=== PATIENT | female | born 1965 | race Two or more races ===

== ENCOUNTER → 2018-01-26 14:32 | Outpatient (CLI) | payer OTHER, SELFPAY ==
[2018-01-26 16:25] LABS: Vitamin D,25 Hydroxy 20.3 ng/mL (29.95-100.01)
== END ==
PROVIDERS: Visit Provider Family Medicine
DX: E55.9 Vitamin D deficiency, unspecified (principal)
CPT/HCPCS: 36415; 82306

== ENCOUNTER → 2018-05-22 08:48 | Outpatient (CLI) | payer OTHER, SELFPAY ==
--- NOTE | 2018-05-22 | IMM_PTH ---
PATIENT: LESLEY BRIONES LOC: [facility] U#:[id number] AGE/SX: 60/F ROOM: RE05/22/[address]: Dr. Nima Samuels MD : 1965 BED: DIS: SPEC #: [id number] RECD: 05/23/18 11:53 STATUS: LAZARO PATRICE #: [id number] ADELE: 05/22/18 00:[address]: Nima Samuels DEPT: IMMUNOHISTOCHEMISTRY RECD BY: Donnie Branham Tissues: Gastric mucous membrane Procedures: H Pylori (initial) PHYSICIAN & INSTITUTION [place] [id number] SPECIMEN INFORMATION: Tissue Source: Gastric biopsy Clinical Info: GERD, epigastric pain Specimen Number: [id number] CPT code: 24865 METHODOLOGY: Deparaffinized sections of prefer/formalin-fixed tissue or PAP/DQ stained slides are incubated with monoclonal/polyclonal antibodies/oligonucleotide probes. Localization is made via biotin free immunoperoxidase method. Appropriate controls are performed and reacted as expected. Results on target cell population are indicated in the following table: RESULTS: ANTIBODY / CLONE RESULT H Pylori (polyclonal) positive These tests were developed and their performance characteristics determined by [facility]. They may not have been cleared or approved by the U.S. Food and Drug Administration. The FDA has determined that such clearance or approval is not necessary. INTERPRETATION: Gastric biopsy: Positive for Helicobacter pylori organisms. NEWTON:ani 05/24/18
--- NOTE | 2018-05-22 | EGD_PTH ---
PATIENT: LESLEY BRIONES LOC: [facility] U#:[id number] AGE/SX: 60/F ROOM: RE05/22/[address]: Dr. Nima Samuels MD : 1965 BED: DIS: SPEC #: [id number] RECD: 05/22/18 11:37 STATUS: LAZARO PATRICE #: [id number] ADELE: 05/22/18 00:[address]: Nima Samuels DEPT: SURGICAL PATHOLOGY RECD BY: Rivas Garcia ENTERED: 05/23/18 11:37 SP TYPE: EGD BIOPSY SHIELA DR: CAYETANO Tissues: Gastric mucous membrane Procedures: Surgery Specimen Level IV HEADER OPERATION: EGD with biopsy PRE-OP DIAGNOSIS: GERD, epigastric pain TISSUE SUBMITTED: Gastric biopsy, rule out gastritis MICROSCOPIC DIAGNOSIS Gastric biopsy: Mild gastritis. SJ:judith 05/23/18 COMMENT The results of immunohistochemistry for Helicobacter pylori will be reported separately ([id number]). This case has been reviewed in consultation with Dr. Briones who concurs with the above diagnoais. MICROSCOPIC DESCRIPTION Slides are reviewed. The specimen shows fragments of gastric mucosa with chronic inflammatory cell infiltrates in the lamina propria consisting of lymphocytes and plasma cells, consistent with mild chronic gastritis. GROSS DESCRIPTION Received in fixative is one container labeled with the patient's name and designated gastric biopsy. The specimen consists of multiple fragments of tissue measuring in aggregate of 1.5 x 0.3 x 0.2. The specimen is totally submitted in one cassette. MERISSA:judith 05/21/18 TC: 3 CPT: 23111
== END ==
PROVIDERS: Visit Provider Internal Medicine Gastroenterology
DX: K21.9 Gastro-esophageal reflux disease without esophagitis (principal); R10.13 Epigastric pain
CPT/HCPCS: 88305; 88342

== ENCOUNTER → 2018-10-15 13:30 | Outpatient (CLI) | payer OTHER, SELFPAY ==
[2018-10-25 08:58] LABS: HPV HC, High Risk Negative (Negative); HPV Reflexed? YES, CHARGE PATIENT
== END ==
PROVIDERS: Visit Provider Obstetrics & Gynecology
DX: Z12.4 Encounter for screening for malignant neoplasm of cervix (principal)
CPT/HCPCS: 87624; 88175; G0145

== ENCOUNTER → 2019-10-16 13:35 | Outpatient (CLI) | payer OTHER, SELFPAY ==
[2019-10-16 15:23] LABS: Absolute Neutrophil Count 2.3 X10^3/uL (2.0-7.7); Basophil# 0.01 X10^3/uL; Basophil% 0.2 % (0-1); Eosinophil# 0.03 X10^3/uL; Eosinophils% 0.6 % (0-5); Hematocrit 40.1 % (37-47); Hemoglobin 12.8 g/dL (12.0-15.0); Lymphocyte % 44.7 % (19-41); Mean Corp Hgb Conc 31.9 g/dL (32-36); Mean Corpuscular Hgb 30.1 pg (27.0-32.0); Mean Corpuscular Volume 94.4 fL (81-99); Mean Platelet Vol. 10.8 fl (6.2-12.0); Monocyte# 0.36 X10^3/uL; Monocyte% 7.3 % (0-10); NRBC Flagged by Analyzer 0 % (0-5); Neutrophil # 2.31 X10^3/uL (2.7-7.7); Platelet Count 220 K/mm3 (150-450); RBC Distribution Width CV 12.8 % (11.6-14.6); RBC Distribution Width SD 43.9 fl (35.1-43.9); Red Blood Count 4.25 M/mm3 (4.2-5.4); White Blood Count 4.9 K/mm3 (4.4-11.0)
[2019-10-16 15:43] LABS: ALB/GLOB Ratio 1.1 RATIO (0.9-2.4); AST(SGOT) 21 U/L (15-37); Alanine Aminotransfer ALT/SGPT 26 U/L (13-56); Albumin, Serum 3.9 g/dL (3.2-5.0); Alkaline Phosphatase 54 U/L (45-117); Anion Gap 7 (5-15); BUN 9 mg/dL (7-18); CRP < 2.90 mg/L (0.0-3.0); Chloride 106 mmol/L (98-107); Creatinine, Serum 0.64 mg/dL (0.55-1.02); EST Glomerular Filtration Rate 102 mL/min (>60); Est Glom Filt Rate - Afr Amer 123 mL/min (>60); Globulin 3.7 g/dL (2.2-4.2); Glucose 68 mg/dL (74-106); Potassium 3.8 mmol/L (3.5-5.1); Protein, Total 7.6 g/dL (6.4-8.2); Sodium Level 139 mmol/L (136-145)
== END ==
PROVIDERS: Family Provider Family Medicine; PCP Family Medicine; Referring Provider Family Medicine; Visit Provider Family Medicine
DX: K52.9 Noninfective gastroenteritis and colitis, unspecified (principal)
CPT/HCPCS: 36415; 80053; 85025; 86140

== ENCOUNTER → 2019-10-17 16:15 | Outpatient (CLI) | payer OTHER, SELFPAY | PROVIDERS: Family Provider Family Medicine; PCP Family Medicine; Referring Provider Family Medicine; Visit Provider Family Medicine | DX: K52.9 Noninfective gastroenteritis and colitis, unspecified (principal) | CPT/HCPCS: 87506 ==

== ENCOUNTER → 2019-11-26 11:53 | Outpatient (CLI) | payer OTHER, SELFPAY ==
[2019-11-29 16:08] LABS: Age Gdln ACOG Testing 30-65 (.)
[2019-11-30 13:05] LABS: HPV APTIMA, High Risk Negative (Negative)
[2019-11-30 13:08] LABS: HPV Reflexed? YES, CHARGE PATIENT
== END ==
PROVIDERS: Visit Provider Obstetrics & Gynecology
DX: Z12.4 Encounter for screening for malignant neoplasm of cervix (principal)
CPT/HCPCS: 87624; 88175; G0145

== ENCOUNTER → 2020-04-24 16:08 | Outpatient (CLI) | payer OTHER, SELFPAY ==
[2020-04-24 18:13] LABS: Vitamin D,25 Hydroxy 33.9 ng/mL
== END ==
PROVIDERS: PCP Family Medicine; Referring Provider Family Medicine; Visit Provider Family Medicine
DX: E55.9 Vitamin D deficiency, unspecified (principal)
CPT/HCPCS: 36415; 82306

== ENCOUNTER → 2020-12-01 | Outpatient (CLI) | payer OTHER, SELFPAY ==
[2020-12-04 15:56] LABS: HPV APTIMA, High Risk Negative (Negative); HPV Reflexed? YES, CHARGE PATIENT
== END | disposition home or self-care (01) ==
LOC: LABSPEC 12-02 08:34
PROVIDERS: PCP Family Medicine; Visit Provider Student in an Organized Health Care Education/Training Program
DX: Z12.4 Encounter for screening for malignant neoplasm of cervix (principal)
CPT/HCPCS: 87624; 88175; G0145

== ENCOUNTER 2022-01-04 16:04 | Outpatient (CLI) | payer OTHER, SELFPAY ==
[2022-01-08 14:47] LABS: HPV APTIMA, High Risk Negative (Negative)
== END 2022-01-04 23:59 | disposition home or self-care (01) ==
PROVIDERS: PCP Family Medicine; Visit Provider Student in an Organized Health Care Education/Training Program
DX: Z12.4 Encounter for screening for malignant neoplasm of cervix (principal)
CPT/HCPCS: 87624; 88175; G0145

== ENCOUNTER 2022-01-19 11:21 | Outpatient (CLI) | payer OTHER, SELFPAY ==
--- NOTE | 2022-01-19 11:25 | BD_ITS ---
STUDY: DUAL ENERGY X-RAY ABSORPTIOMETRY / DXA REASON FOR EXAM: Female, 56 years old. [id number] the patient is postmenopausal. TECHNIQUE: Bone Mineral Density (BMD) measurements of lumbar spine and bilateral hips were obtained. COMPARISON: Comparison is made with prior study dated 10/11/2012. FINDINGS: Lumbar Spine (L1-L4): g/cm2 (0.780) / T-score (-2.4) / Z-score (-1.1) Findings are suggestive of osteopenia with a high fracture risk. Left Femur Total: g/cm2 (0.921) / T-score (-0.2) / Z-score (0.7) Left Femoral Neck: g/cm2 (0.806) / T-score (-0.4) / Z-score (0.8) Right Femur Total: g/cm2 (0.910) / T-score (-0.3) / Z-score (0.6) Right Femoral Neck: g/cm2 (0.829) / T-score (-0.2) / Z-score (1.0) The T-Scores on the most recent prior examination were: Lumbar Spine (L1-L4): There has been worsening of bone density since the previous examination. Left Femur Total: which represents a worsening of 0.5%. Right Femur Total: which represents an improvement of 0.8%. BD/Dexa Bone Density Study IMPRESSION: The patient is considered osteopenic as outlined below according to World Adrian Organization (WHO) criteria with a high fracture risk. There has been worsening of bone density since the previous examination. Reference Information: The T-score is the number of standard deviations above or below the standard which is normal for young adults at their peak bone mineral density. The World Health Organization (WHO) interprets the T-scores as follows: Above -1 Normal bone density Between -1 and -2.5 Osteopenia Equal to / or below -2.5 Osteoporosis As a practical clinical guideline, osteopenia may be graded as follows: Mild -1 through -1.5 Moderate -1.6 through -2.0 Severe -2.1 through -2.4 The Z-score is the number of standard deviations above or below age-matched controls. A Z-score of less than -1.5 would be considered abnormal. References: 1. NIH Osteoporosis and Related Bone Diseases www osteo.org 2. International Society for Clinical Densitometry www iscd.org 3. National Osteoporosis Foundation www nof.org Electronically Signed: Jose James MD at 15:27 EST ,
== END 2022-01-19 23:59 | disposition home or self-care (01) ==
LOC: OPBD 11:22
PROVIDERS: PCP Family Medicine; Referring Provider Student in an Organized Health Care Education/Training Program; Visit Provider Student in an Organized Health Care Education/Training Program
DX: Z13.820 Encounter for screening for osteoporosis (principal); M85.80 Other specified disorders of bone density and structure, unspecified site; Z78.0 Asymptomatic menopausal state
CPT/HCPCS: 77080

== ENCOUNTER → 2022-10-27 | Outpatient (CLI) | payer OTHER, SELFPAY ==
--- NOTE | 2022-10-27 16:36 | BI_ITS ---
MAMMOGRAPHY - BILATERAL SCREENING REASON FOR EXAM: Female, 57 years old. Routine annual screening examination. PERTINENT HISTORY: Personal history of breast cancer. Prior right lumpectomy with radiation and chemotherapy. Grandmother with breast cancer. TECHNIQUE: Digital bilateral breast derek (3D mammographic acquisition) in the CC and MLO projections. 2-D mediolateral oblique (MLO) and craniocaudad (CC) views of both breasts were obtained. CAD: Full Field Digital Mammography with Computer Added Detection was performed. COMPARISON: Comparison is made with prior outside examination dated 10/14/2021. FINDINGS: Breast Composition: There are scattered areas of fibroglandular density. There are no dominant masses or suspicious calcifications. The patient is status post lumpectomy in the retroareolar region of the right breast with resultant postoperative architectural distortion and breast deformity with skin thickening overlying the anterior aspect of the breast. No other significant abnormalities are identified. There has been no significant change since the prior study. BI/SCRN MAMM (CAD)W/DEREK BILAT IMPRESSION: Stable bilateral screening mammogram. Yearly follow-up mammogram recommended. (A) ASSESSMENT CATEGORY: BIRADS Category 2: Benign. A letter regarding these results will be sent to the patient by the facility within 30 days. Approximately 10% of breast cancers are not detected by mammography. A normal mammogram should not delay biopsy of a clinically suspicious abnormality. [id number] Electronically Signed: Jose James MD at 8:40 EST ,
== END | disposition home or self-care (01) ==
LOC: OPBI 10-28 07:14
PROVIDERS: PCP Family Medicine
DX: Z12.31 Encounter for screening mammogram for malignant neoplasm of breast (principal); C50.911 Malignant neoplasm of unspecified site of right female breast; Z17.0 Estrogen receptor positive status [ER+]
CPT/HCPCS: 77063; 77067

== ENCOUNTER → 2023-03-13 | Outpatient (CLI) | payer OTHER, SELFPAY ==
[2023-03-17 21:07] LABS: HPV APTIMA, High Risk Negative (Negative)
== END | disposition home or self-care (01) ==
LOC: LABSPEC 09:42
PROVIDERS: PCP Family Medicine; Visit Provider Student in an Organized Health Care Education/Training Program
DX: Z12.4 Encounter for screening for malignant neoplasm of cervix (principal)
CPT/HCPCS: 87624; 88175; G0145

== ENCOUNTER → 2023-04-26 | Outpatient (CLI) | payer OTHER, SELFPAY ==
--- NOTE | 2023-04-26 15:37 | RAD_ITS ---
INDICATION: pre op EXAMINATION/TECHNIQUE: X-RAY - XR Chest 2 Views COMPARISON: None. FINDINGS: LINES/DEVICES: None. LUNGS: No consolidation, edema or effusion. No pneumothorax. MEDIASTINUM AND CARDIOVASCULAR STRUCTURES: Cardiac silhouette not enlarged. Central airways and mediastinal contour are unremarkable. BONES AND SOFT TISSUES: Unremarkable. RAD/Chest PA and Lateral IMPRESSION: No radiographic evidence of acute cardiopulmonary disease. Electronically Signed: Clifton Diggs MD at 0:15 EDT ,
[2023-04-26 17:23] LABS: Absolute Lymphocyte Count 1.73 X10^3/uL (0.83-4.51); Basophil# 0.03 X10^3/uL; Basophil% 0.7 % (0-1); Eosinophil# 0.05 X10^3/uL; Eosinophils% 1.2 % (0-5); Hematocrit 42.8 % (37-47); Hemoglobin 13.6 g/dL (12.0-15.0); Lymphocyte # 1.73 X10^3/ul (0.83-4.51); Lymphocyte % 42.3 % (19-41); Mean Corp Hgb Conc 31.8 g/dL (32-36); Mean Corpuscular Hgb 29.8 pg (27.0-32.0); Mean Corpuscular Volume 93.7 fL (81-99); Mean Platelet Vol. 9.7 fl (6.2-12.0); Monocyte# 0.29 X10^3/uL; Monocyte% 7.1 % (0-10); NRBC Flagged by Analyzer 0 % (0-5); Neutrophil # 1.98 X10^3/uL (2.7-7.7); Neutrophil % 48.5 % (47-70); Platelet Count 262 K/mm3 (150-450); RBC Distribution Width CV 12.8 % (11.6-14.6); RBC Distribution Width SD 43.8 fl (35.1-43.9); Red Blood Count 4.57 M/mm3 (4.2-5.4); White Blood Count 4.1 K/mm3 (4.4-11.0)
[2023-04-26 18:04] LABS: ALB/GLOB Ratio 1.1 RATIO (0.9-2.4); AST(SGOT) 23 U/L (15-37); Alanine Aminotransfer ALT/SGPT 34 U/L (13-56); Albumin, Serum 3.9 g/dL (3.2-5.0); Alkaline Phosphatase 79 U/L (45-117); Anion Gap 7 (5-15); BUN 16 mg/dL (7-18); BUN/Creat Ratio 21.4 RATIO (10-20); Calcium,Total 9.1 mg/dL (8.5-10.1); Chloride 107 mmol/L (98-107); Creatinine, Serum 0.75 mg/dL (0.55-1.02); EST Glomerular Filtration Rate 84 mL/min (>60); Est Glom Filt Rate - Afr Amer 102 mL/min (>60); Globulin 3.7 g/dL (2.2-4.2); Glucose 100 mg/dL (74-106); Potassium 4.2 mmol/L (3.5-5.1); Protein, Total 7.6 g/dL (6.4-8.2); Sodium Level 140 mmol/L (136-145)
== END | disposition home or self-care (01) ==
LOC: MTLAB 15:35
PROVIDERS: PCP Family Medicine; Referring Provider Nurse Practitioner Family; Visit Provider Nurse Practitioner Family
DX: Z01.818 Encounter for other preprocedural examination (principal)
CPT/HCPCS: 36415; 71046; 80053; 85025

== ENCOUNTER → 2023-07-07 | Outpatient (CLI) | payer OTHER, SELFPAY ==
[2023-07-07 18:13] LABS: Anion Gap 5 (5-15); BUN 14 mg/dL (7-18); BUN/Creat Ratio 14.6 RATIO (10-20); Calcium,Total 9.6 mg/dL (8.5-10.1); Chloride 104 mmol/L (98-107); Cholesterol 215 mg/dL (200); Creatinine, Serum 0.96 mg/dL (0.55-1.02); EST Glomerular Filtration Rate 63 mL/min (>60); Est Glom Filt Rate - Afr Amer 77 mL/min (>60); Glucose 93 mg/dL (74-106); High Density Lipoprotein 66 mg/dL; Potassium 4.3 mmol/L (3.5-5.1); Sodium Level 135 mmol/L (136-145); Triglycerides 93 mg/dL; Very Low Density Lipoprotein 19 mg/dL (5-40)
== END | disposition home or self-care (01) ==
LOC: MFPLAB 15:04
PROVIDERS: PCP Family Medicine; Visit Provider Family Medicine
DX: Z00.00 Encounter for general adult medical examination without abnormal findings (principal)
CPT/HCPCS: 36415; 80048; 80061

== ENCOUNTER → 2023-11-06 | Outpatient (CLI) | payer OTHER, SELFPAY ==
--- NOTE | 2023-11-06 14:15 | BI_ITS ---
MAMMOGRAPHY - BILATERAL SCREENING REASON FOR EXAM: Female, 58 years old. Routine annual screening examination. PERTINENT HISTORY: Personal history of breast cancer. Prior right lumpectomy with radiation and chemotherapy. Grandmother with breast cancer. TECHNIQUE: Digital bilateral breast derek (3D mammographic acquisition) in the CC and MLO projections. 2-D mediolateral oblique (MLO) and craniocaudad (CC) views of both breasts were obtained. CAD: Full Field Digital Mammography with Computer Added Detection was performed. COMPARISON: Comparison is made with prior study dated October 27, 2022 and August 03, 2011. FINDINGS: Breast Composition: There are scattered areas of fibroglandular density. There are no dominant masses or suspicious calcifications. The patient is status post lumpectomy in the retroareolar region of the right breast with resultant postoperative architectural distortion and breast deformity. Overlying skin thickening. Stable benign-appearing bilateral axillary lymph nodes. No other significant abnormalities are identified. There has been no significant change since the prior study. BI/SCRN MAMM (CAD)W/DEREK BILAT IMPRESSION: Stable bilateral screening mammogram. Yearly follow-up mammogram recommended. (A) ASSESSMENT CATEGORY: BIRADS Category 2: Benign. A letter regarding these results will be sent to the patient by the facility within 30 days. Approximately 10% of breast cancers are not detected by mammography. A normal mammogram should not delay biopsy of a clinically suspicious abnormality. [id number] Electronically Signed: Jose James MD at 15:13 EST ,
== END | disposition home or self-care (01) ==
LOC: OPBI 14:14
PROVIDERS: PCP Family Medicine; Referring Provider Family Medicine; Visit Provider Family Medicine
DX: Z12.31 Encounter for screening mammogram for malignant neoplasm of breast (principal); Z85.3 Personal history of malignant neoplasm of breast
CPT/HCPCS: 77063; 77067

== ENCOUNTER → 2024-11-07 | Outpatient (CLI) | payer OTHER, SELFPAY ==
--- NOTE | 2024-11-07 14:50 | BI_ITS ---
MAMMOGRAPHY - BILATERAL SCREENING REASON FOR EXAM: Female, 59 years old. Routine annual screening examination. PERTINENT HISTORY: Personal history of breast cancer. Prior right lumpectomy with chemotherapy and radiation therapy. Grandmother with breast cancer. TECHNIQUE: Digital bilateral breast derek (3D mammographic acquisition) in the CC and MLO projections. 2-D mediolateral oblique (MLO) and craniocaudad (CC) views of both breasts were obtained. CAD: Full Field Digital Mammography with Computer Added Detection was performed. COMPARISON: Comparison is made with prior study dated November 06, 2023 and October 27, 2020 FINDINGS: Breast Composition: There are scattered areas of fibroglandular density. There are no dominant masses or suspicious calcifications. Once again, the patient is status post lumpectomy in the retroareolar region of the right breast with resultant postoperative architectural distortion and breast deformity. Stable overlying skin thickening. Stable fat-containing right axillary lymph nodes. No other significant abnormalities are identified. There has been no significant change since the prior study. BI/SCRN MAMM (CAD)W/DEREK BILAT IMPRESSION: Stable bilateral screening mammogram. Yearly follow-up mammogram recommended. (A) ASSESSMENT CATEGORY: BIRADS Category 2: Benign. A letter regarding these results will be sent to the patient by the facility within 30 days. Approximately 10% of breast cancers are not detected by mammography. A normal mammogram should not delay biopsy of a clinically suspicious abnormality. [id number] Electronically Signed: Jose James MD at 15:24 EST ,
== END | disposition home or self-care (01) ==
LOC: OPBI 14:49
PROVIDERS: PCP Family Medicine; Referring Provider Obstetrics & Gynecology; Visit Provider Family Medicine
DX: Z12.31 Encounter for screening mammogram for malignant neoplasm of breast (principal)
CPT/HCPCS: 77063; 77067

== ENCOUNTER → 2025-11-11 | Outpatient (CLI) | payer OTHER, SELFPAY ==
--- NOTE | 2025-11-11 15:02 | BI_ITS ---
EXAM: SCRN MAMM (CAD)W/DEREK BILAT DATE: 11/11/2025 CLINICAL HISTORY: F, Age 60 y/o , SCREENING Personal history of breast cancer. Prior right lumpectomy. TECHNIQUE: Procedure Code: [id number] Modality: MG Procedure: SCRN MAMM (CAD)W/DEREK BILAT COMPARISON: Prior exam(s) dated November 07, 2024.. FINDINGS: TISSUE DENSITY: The breasts are heterogeneously dense, which may obscure small masses. Bilateral Breast Mammographic Findings: No significant masses, calcifications or other abnormalities are identified. Status post right lumpectomy with postoperative scarring. No suspicious masses, areas of developing architectural distortion, or suspicious calcifications. There has been no significant interval change. BI/SCRN MAMM (CAD)W/DEREK BILAT IMPRESSION: Stable bilateral screening mammogram. OVERALL FINAL ASSESSMENT BI-RADS 2: BENIGN RECOMMENDATION: Routine annual follow-up in 1 Year Additional Recommendation none A letter with findings and recommendations will be mailed to the patient. Reading Location: [facility]
--- OUTSIDE RECORDS SUMMARY | 2025-11-11 20:22 | XMS RPT_ITS | CCD ---
Author Organization [facility] CliniSyut Care Team Providers Care Licensed Reactor Operator Name Role Phone FLORENCE VIRGEN Primary Care Unavailable FLORENCE VIRGEN Primary Care Unavailable PROMISE, FLORENCE Gianna Referring Unavailable COLIN REA Attending Unavailable Dr. Florence Virgen Primary Care Provider Dr. Florence Virgen Referring Provider [facility] COMMUNICATIONS MAINTAINER, COMMUNICATIONS MAINTAINERMelia Lujan Attending Provider DR FLORENCE VIRGEN MD Primary Care Physician [phone] JUDIT TORRES MD Attending Unavailable DR FLORENCE VIRGEN MD Primary Care Unavailable NICO BAEZ, MICK Consulting Unavailable [place] SERVICE OFFICER-ASSISTANT BRANCH OPERATIONS MANAGER, CYRUS Attending Unavailjemal VIRGEN MD, DR BEAR Primary Care Unavailable JUDIT TORRES MD Attending Unavailable PROMISE BAEZ, DR BEAR Primary Care Unavailable Unavailable Primary Care Provider UnavailSHARLENE Gonzalez Attending Unavailable Florence Virgen Attending Unavailable Florence Virgen Primary Care Unavailable Sharlene Chowdary Referring Unavailable Kaye Terry MD Primary Care Provider KAYE TERRY Referring Unavailable SCHOCHAT, KAYE Primary Care Unavailable RICARDO MUNOZ Attending Unavailable SERENITY CONROY Attending Unavailable MICHAELATKAYE Referring Unavailable SCHOCHAT, KAYE Primary Care Unavailable MICHAELATKAYE Attending Unavailable SCHKAYE BAXTER Referring Unavailable SCHOCHAT, KAYE Primary Care Unavailable SCHCASIMIROATKAYE Attending Unavailable SCHOCHAT, KAYE Referring Unavailable SCHOCHAT, KAYE Admitting Unavailable SCHOCHAT, KAYE Primary Care Unavailable NAVDEEP BARROS Attending Unavailable SCHCASIMIROAT, KAYE Referring Unavailable SCHOCHAT, KAYE Primary Care Unavailable SCHKAYE BAXTER Attending Unavailable SCHOCHAT, KAYE Primary Care Unavailable PCP, NONE Referring Unavailable CORA GILL Attending Unavailable KAYE TERRY Referring Unavailable KAYE TERRY Primary Care Unavailable Medications Current Medications Medication Drug Class(es) Dates Sig (Normalized) Sig (Original) amoxicillin 500 mg / clavulanate 125 mg oral tablet (5 sources) Penicillin-class Antibacterial Start: 10-22-2022 take 1 tablet by mouth every twelve hours Amoxicillin-Pot Clavulanate (Augmentin) 500-125 mg tablet Active 1 TABLET PO Q12H October 22, 2022 12:00am B Complex-Folic Acid (B COMPLEX VITAMINS, W/ FA, PO) (1 source) B Complex-Folic Acid (B COMPLEX VITAMINS, W/ FA, PO) Take by mouth every 48 hours. Active Calcium (2 sources) Phosphate Binder, Calcium CALCIUM PO Take by mouth once. Active CALCIUM ORAL [place] e by mouth. Active calcium carbonate 1500 mg / cholecalciferol 0.01 mg oral tablet (1 source) Vitamin D Start: 04-20-2023 take 1 tablet by mouth once daily at bedtime calcium (as carbonate)-vitamin D 600 mg-10 mcg (400 intl units) oral tablet Dose = 1 tab(s), Oral, qHS, # 60 tab(s), 0 Refill(s) Start Date: 04/20/23 Status: Ordered cetirizine hydrochloride 10 mg oral tablet (2 sources) Histamine-1 Receptor Antagonist Start: 04-20-2023 Aller-Cem 10 mg oral tablet Dose : 10 mg = 1 tab(s), Oral, qHS, 0 Refill(s) Start Date: 04/20/23 Status: Ordered loratadine 10 mg oral tablet (1 source) take 1 tablet by mouth every twenty-four hours as needed loratadine (CLARITIN) 10 mg tablet Take 10 mg by mouth at bedtime as needed. Active Multiple Vitamins-Minerals (WOMENS MULTIVITAMIN PO) (1 source) Multiple Vitamins-Minerals (WOMENS MULTIVITAMIN PO) Take by mouth. Active Vitamin B Complex (1 source) vitamin B comple x (B COMPLEX VITAMINS ORAL) Take by mouth every 48 hours. Active Vitamin B Complex oral capsule (1 source) Start: 04-20-2023 take 1 capsule by mouth once daily at bedtime Vitamin B Complex oral capsule Dose = 1 cap(s), Oral, qHS, # 90 cap(s), 0 Refill(s) Start Date: 04/20/23 Status: Ordered Problems Active Problems Problem Classification Problem Date Documented Da te Episodic/Chronic Abdominal pain (1 source) Pain in female pelvis 05-03-2023 Episodic Cancer of breast (8 sources) Malignant neoplasm of unspecified site of right female breast; Translations: [Malignant tumor of breast ] Onset: 08-04-2011 Chronic Other female genital disorders (1 source) Stenosis of cervix 05-03-2023 Episodic Other liver diseases (2 sources) Elevated liver enzymes level; Translations: [Abnormal levels of other serum enzymes] 07-04-2025 Episodic Other screening for suspected conditions (not mental disorders or infectious disease) (1 source) Endometrium thickened 05-03-2023 Chronic Past or Other Problems Problem Classification Problem Date Documented Date Episodic/Chronic Cancer of breast (2 sources) History of malignant neoplasm of breast; Translations: [Personal history of malignant neoplasm of breast] Onset: 06-20-2025 09-16-2024 Episodic Immunizations and screening for infectious disease (4 sources) Patient encounter status; Translations: [Encounter for screening for human papillomavirus (HPV)] Onset: 06-20-2025 09-16-2024 Episodic Other liver diseases (1 source) Abnormal levels of other serum enzymes; Translations: [Abnormal levels of other serum enzymes] Onset: 06-25-2025 Episodic Other screening for suspected conditions (not mental disorders or infectious disease) (6 sources) Encounter for screening mammogram for malignant neoplasm of breast; Translations: [Patient encounter status] Onset: 10-17-2022 Episodic Other upper respiratory infections (6 sources) Acute maxillary sinusitis; Translations: [Acute maxillary sinusitis, unspecified] Episodic Residual codes; unclassified (2 sources) Estrogen receptor positive status [ER+]; Translations: [Estrogen receptor positive status (ER+)] Onset: 10-03-2011 Episodic Results Test Name Value Interpretation Reference Range Facil it HEPATIC FUNCTION PANELon Albumin [Mass/Vol] 4.5 g/dL Normal 3.5-5.0 [facility] arviem AG [facility] Comment on above: Performed By: #### 4 [id number] #### [place] [address] [place] [address] ALK PHOS 118 U/L Normal 24-126 [facility] Comment on above: Performed By: #### 4 [id number] #### [address] ALT [Catalytic activity/Vol] 34 U/L Normal 4-35 [facility] Comment on above: Performed By: #### 4 [id number] #### [address] AST [Catalytic activity/Vol] 45 U/L Normal 3-47 [facility] Comment on above: Performed By: #### 4 [id number] #### [address] Bilirubin [Mass/Vol] 0.4 mg/dL Normal 0.2-1.6 [facility] Comment on above: Performed By: #### 4 [id number] #### [address] Bilirubin.indirect [Mass/Vol] 0.2 mg/dL Normal <=0.5 [facility] Comment on above: Performed By: #### 4 [id number] #### [address] Protein [Mass/Vol] 7.5 g/dL Normal 6.3-8.2 [facility] Comment on above: Performed By: #### 4 [id number] #### [address] HEPATIC FUNCTION PANELon Albumin [Mass/Vol] 4.4 g/dL Normal 3.5-5.0 [facility] Comment on above: Performed By: #### 4 [id number] #### [address] ALK PHOS 106 U/L Normal 24-126 [facility] Comment on above: Performed By: #### 4 [id number] #### [address] [address] ALT [Catalytic activity/Vol] 43 U/L High 4-35 [facility] Comment on above: Performed By: #### 4 [id number] #### [facility] [address] [place] [address] AST [Catalytic activity/Vol] 38 U/L Normal 3-47 [facility] Comment on above: Performed By: #### 4 [id number] #### [facility] [address] Bilirubin [Mass/Vol] 0.8 mg/dL Normal 0.2-1.6 [facility] arviem AG [facility] Comment on above: Performed By: #### 4 [id number] #### [place] [address] Bilirubin.indirect [Mass/Vol] 0.3 mg/dL Normal <=0.5 [facility] Comment on above: Performed By: #### 4 [id number] #### [place] [address] Protein [Mass/Vol] 7.8 g/dL Normal 6.3-8.2 [facility] arviem AG [facility] Comment on above: Performed By: #### 4 [id number] #### [place] [address] US LIVERon 07-04-2025 US LIVER EXAMINATION: US LIVER, 07/04/2025 8:55 AM EDT INDICATION: Abnormal serum enzymes. FINDINGS: Mild generalized increased hepatic echogenicity. No hepatic mass. The liver is normal for size. Portal vein demonstrates normal patency and directional flow. No intrahepatic biliary duct dilatation. No perihepatic free fluid or intra-abdominal ascites. Gallbladder is normal without luminal debris or gallstones. No gallbladder wall thickening, or pericholecystic fluid. Patient demonstrates a negative sonographic Ann's sign. Common duct measures 3 mm, which is considered within normal limits. The right kidney is sonographically unremarkable. Pancreatic head and body are normal. The pancreatic tail is obscured. Visualized IVC and aorta appear unremarkable. IMPRESSION: 1. Mildly echogenic hepatic parenchyma. Hepatic findings are most commonly due to hepatic steatosis. Differential considerations include, but are not limited to, hepatic inflammation and infection. Diagnosis: Elevated liver enzymes [R74.8 (ICD-10-CM)] Tech Notes: elevated liver enzymes Tech impression: neg ann's; wnl See the scanned document in Synapse under the Documents tab. Order Comments: Ordering Physician: Kaye Terry MD Dose: Normal [facility] US Liveron 07-04-2025 1. Mildly echogenic hepatic parenchyma. Hepatic findings are most commonly due to hepatic steatosis. Differential considerations include, but are not limited to, hepatic inflammation and infection. [facility] EXAMINATION: US LIVER, 07/04/2025 8:55 AM EDT INDICATION: Abnormal serum enzymes. FINDINGS: Mild generalized increased hepatic echogenicity. No hepatic mass. The liver is normal for size. Portal vein demonstrates normal patency and directional flow. No intrahepatic biliary duct dilatation. No perihepatic free fluid or intra-abdominal ascites. Gallbladder is normal without luminal debris or gallstones. No gallbladder wall thickening, or pericholecystic fluid. Patient demonstrates a negative sonographic Ann's sign. Common duct measures 3 mm, which is considered within normal limits. The right kidney is sonographically unremarkable. Pancreatic head and body are normal. The pancreatic tail is obscured. Visualized IVC and aorta appear unremarkable. Florence Yeboah MD - 07/04/2025 EXAMINATION: US LIVER, 07/04/2025 8:55 AM EDT INDICATION: Abnormal serum enzymes. FINDINGS: Mild generalized increased hepatic echogenicity. No hepatic mass. The liver is normal for size. Portal vein demonstrates normal patency and directional flow. No intrahepatic biliary duct dilatation. No perihepatic free fluid or intra-abdominal ascites. Gallbladder is normal without luminal debris or gallstones. No gallbladder wall thickening, or pericholecystic fluid. Patient demonstrates a negative sonographic Ann's sign. Common duct measures 3 mm, which is considered within normal limits. The right kidney is sonographically unremarkable. Pancreatic head and body are normal. The pancreatic tail is obscured. Visualized IVC and aorta appear unremarkable. IMPRESSION: 1. Mildly echogenic hepatic parenchyma. Hepatic findings are most commonly due to hepatic steatosis. Differential considerations include, but are not limited to, hepatic inflammation and infection. Keila arviem AG [facility] Radiology Study observation (narrative) Keila arviem AG [facility] US LiverOrdered By: Florence Hernandez in on 07-04-2025 [employer] Work Phone: HEPATIC FUNCTION PANELon Albumin [Mass/Vol] 4.1 g/dL Normal 3.5-5.0 [employer] [employer] Comment on above: Performed By: #### 4 [id number] #### [place] [address] ALK PHOS 150 U/L High 24-126 [employer] Comment on above: Performed By: #### 4 [id number] #### [place] [address] ALT [Catalytic activity/Vol] 200 U/L High 4-35 [facility] Comment on above: Performed By: #### 4 [id number] #### [address] AST [Catalytic activity/Vol] 66 U/L High 3-47 [facility] Comment on above: Performed By: #### 4 [id number] #### [address] [address] Bilirubin [Mass/Vol] 0.3 mg/dL Normal 0.2-1.6 [facility] Comment on above: Performed By: #### 4 [id number] #### [address] Bilirubin.indirect [Mass/Vol] 0.1 mg/dL Normal <=0.5 [facility] Comment on above: Performed By: #### 4 [id number] #### [address] Protein [Mass/Vol] 7.2 g/dL Normal 6.3-8.2 [facility] Comment on above: Performed By: #### 4 [id number] #### [address] CBCon 06-23-2025 Erythrocyte distribution width (RBC) [Ratio] 13.1 % Normal 11.5-14.5 [facility] Comment on above: Performed By: #### 4 [id number] #### [address] Hematocrit (Bld) [Volume fraction] 42.3 % Normal 33.6-46.8 [facility] Comment on above: Performed By: #### 4 [id number] #### [address] Hemoglobin (Bld) [Mass/Vol] 13.4 g/dL Normal 11.7-15.8 [facility] Comment on above: Performed By: #### 4 [id number] #### [address] MCH (RBC) [Entitic mass] 29.4 pg Normal 27.5-32.3 [facility] Comment on above: Performed By: #### 4 [id number] #### [address] MCHC (RBC) [Mass/Vol] 31.7 g/dL Normal 30.7-35.5 [facility] Comment on above: Performed By: #### 4 [id number] #### [address] MCV (RBC) [Entitic vol] 92.8 fL Normal 80.2-99 [facility] Comment on above: Performed By: #### 4 [id number] #### [address] PLATELET COUNT 196 x10*3/uL Normal 150-400 [facility] Comment on above: Performed By: #### 4 [id number] #### [address] RED BLOOD CELL COUNT 4.56 x10*6/uL Normal 3.60-5.20 [facility] Comment on above: Performed By: #### 4 [id number] #### [address] WHITE BLOOD CELLS 5.0 x10*3/uL Normal 4.3-10.3 [facility] Comment on above: Performed By: #### 4 [id number] #### [address] COMPREHENSIVE METABOLIC PANE Mike 06-23-2025 Albumin [Mass/Vol] 4.0 g/dL Normal 3.5-5.0 [facility] Comment on above: Performed By: #### 4 [id number], [id number] #### [address] ALK PHOS 170 U/L High 24-126 [facility] Comment on above: Performed By: #### 4 [id number], [id number] #### [address] ALT [Catalytic activity/Vol] 343 U/L High 4-35 [facility] Comment on above: Performed By: #### 4 [id number], [id number] #### [address] AST [Catalytic activity/Vol] 268 U/L High 3-47 [facility] Comment on above: Performed By: #### 4 [id number], [id number] #### [address] [place] [address] [facility] Bilirubin [Mass/Vol] 0.3 mg/dL Normal 0.2-1.6 [facility] Comment on above: Performed By: #### 4 [id number], [id number] #### [address] [place] [address] [facility] Calcium [Mass/Vol] 9.3 mg/dL Normal 8.4-10.4 [facility] Comment on above: Performed By: #### 4 [id number], [id number] #### [address] [place] [address] [facility] Chloride [Moles/Vol] 107 mmol/L Normal 96-109 [facility] Comment on above: Performed By: #### 4 [id number], [id number] #### [address] [place] [address] [facility] CO2 [Moles/Vol] 25 mmol/L Normal 22-30 [facility] Comment on above: Performed By: #### 4 [id number], [id number] #### [address] [place] [address] [facility] Creatinine [Mass/Vol] 0.58 mg/dL Normal 0.52-1.04 [facility] Comment on above: Performed By: #### 4 [id number], [id number] #### [address] [place] [address] [facility] GLOMERULAR FILTRATION RATE ML/MIN/1.73 SQ M.PREDICTED 102.5 mL/min/1.73m*2 Normal >=60.0 [facility] Comment on above: Result Comment: eGFR calculation based on the Chronic Kidney Disease Epidemiology Collaboration (CKD-EPI) equation refit without adjustment for race. Categories in Chronic Kidney Disease (CKD) Category: GFR(mL/min/1.73m^2) Interpretation: G1* 90 or greater Normal or high G2* 60-89 Mild decrease G3a 45-59 Mild to moderate decrease G3b 30-44 Moderate to severe decrease G4 15-29 Severe decrease G5 14 or less Kidney failure *G1&G2: In the absence of evidence of kidney damage, neither GFR category G1 nor G2 fulfill the criteria for CKD Kidney Int Suppl.2013;3:1-150 Performed By: #### 4 [id number], [id number] #### [address] [address] [place] Glucose [Mass/Vol] 103 mg/dL High 65-100 [facility] Comment on above: Performed By: #### 4 [id number], [id number] #### [address] [place] [address] [facility] Potassium [Moles/Vol] 4.3 mmol/L Normal 3.6-5.1 [facility] Comment on above: Performed By: #### 4 [id number], [id number] #### [place] [address] [place] [address] [facility] Protein [Mass/Vol] 7.1 g/dL Normal 6.3-8.2 [facility] Comment on above: Performed By: #### 4 [id number], [id number] #### [address] [address] [facility] Sodium [Moles/Vol] 139 mmol/L Normal 135-147 [facility] Comment on above: Performed By: #### 4 [id number], [id number] #### [place] [address] [place] [address] [place] Urea nitrogen [Mass/Vol] 7 mg/dL Low 8-26 [facility] Comment on above: Performed By: #### 4 [id number], [id number] #### [address] [address] [facility] HEMOGLOBIN A1Con 06-23-2025 HbA1c (Bld) [Mass fraction] 5.8 % High 4.8-5.6 [facility] Comment on above: Order Comment: Perfo rmed at: 01 - [facility] [place] [id number] [place], [place] [id number] Pottery Decorator: Nima Bruce PhD, Phone: [phone] Result Comment: Pred iabetes: 5.7 - 6.4 Diabetes: >6.4 Glycemic control for adults with diabetes: <7.0 Performed By: #### 4 [id number] #### [facility] [address] [place] [address] [place] HEPATITIS C ANTIBODYon 06-23 HEPATITIS C ANTIBODY Non-Reactive Normal Nonreac tive, Indeterminate [facility] Comment on above: Performed By: #### 4 [id number] #### [place] [address] LIPID PANELon 06-23-2025 Cholesterol [Mass/Vol] 203 mg/dL High <=200 [facility] Comment on above: Performed By: #### 4 [id number], [id number] #### [address] Cholesterol in HDL [Mass/Vol] 52.0 mg/dL Normal 40.0-59.9 [facility] Comment on above: Performed By: #### 4 [id number], [id number] #### [address] LDL CHOLESTEROL CALCULATED 125 mg/dL High <=100 [facility] Comment on above: Result Comment: LDL REFERENCE RANGE: Optimal <100 mg/dl Near Optimal 100-129 mg/dL Borderline High 130-159 mg/dL High 160-189 mg/dL Very High >=190 mg/dL LDL-c is calculated using the Friedewald equation: LDL Cholesterol = (Total Cholesterol) - (HDL Cholesterol) - (Triglycerides/5). Performed By: #### 4 [id number], [id number] #### [address] Triglyceride [Mass/Vol] 129 mg/dL Normal <=150 [facility] Comment on above: Performed By: #### 4 [id number], [id number] #### [address] VLDL CHOLESTEROL JANNETH 26 mg/dL Normal <=41 [facility] Comment on above: Performed By: #### 4 [id number], [id number] #### [place] [address] SCRN MAMM (CAD)W/DEREK BILATo n 11-07-2024 SCRN MAMM (CAD)W/DEREK BILAT [facility] Imaging Services [address] [place] [address] SCRN MAMM (CAD)W/DEREK BILAT MR#: [id number] Acct: [id number] Name: ANALISHARIRADHA Rep #: [id number] : 1965 F 59 From: Jose turcios MD PCP: Dr. Florence Virgen MD Status: [facility] Study: SCRN MAMM (CAD)W/DEREK BILAT Date of Exam: 10/27 01/20 Exam# [id number] Ordering Dr: Florence Virgen MD [id number] MAMMOGRAPHY - BILATERAL SCREENING REASON FOR EXAM: Female, 59 years old. Routine annual screening examination. PERTINENT HISTORY: Personal history of breast cancer. Prior right lumpectomy with chemotherapy and radiation therapy. Grandmother with breast cancer. TECHNIQUE: Digital bilateral breast derek (3D mammographic acquisition) in the CC and MLO projections. 2-D mediolateral oblique (MLO) and craniocaudad (CC) views of both breasts were obtained. CAD: Full Field Digital Mammography with Computer Added Detection was performed. COMPARISON: Comparison is made with prior study dated November 06, 2023 and October 27, 2020 FINDINGS: Breast Composition: There are scattered areas of fibroglandular density. There are no dominant masses or suspicious calcifications. Once again, the patient is status post lumpectomy in the retroareolar region of the right breast with resultant postoperative architectural distortion and breast deformity. Stable overlying skin thickening. Stable fat-containing right axillary lymph nodes. No other significant abnormalities are identified. There has been no significant change since the prior study. BI/SCRN MAMM (CAD)W/DEREK BILAT IMPRESSION: Stable bilateral screening mammogram. Yearly follow-up mammogram recommended. (A) ASSESSMENT CATEGORY: BIRADS Category 2: Benign. A letter regarding these results will be sent to the patient by the facility within 30 days. Approximately 10% of breast cancers are not detected by mammography. A normal mammogram should not delay biopsy of a clinically suspicious abnormality. [id number] Electronically Signed: Jose James MD at 15:24 EST , CC: Dr. Florence Virgen MD Fundraising Coordinator: Signed [facility] CNOVon 09-16-2024 [facility] Office Visit (OBGYWM ) TRISTIN SOLORZANO ([id number]) 1965 F Date Time Provider Department 09/16/24 9:40 AM SHARLENE CHOWDARY OBGYWM During your visit today, we recorded the following information about you: Blood pressure Weight Height 110/62 53.1 kg 1.511 m Sharlene Chowdary MD 09/16/2024 10:32 AM Signed Keila is a 59 year old who presents for an annual gynecologic exam without complaints. H/o breast ca Postmenopausal: yes HRT use: No. 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 History LMP: Postmenopausal Age at Menarche: Age at First : Age at Menopause: Ballet Dancer History Comments: Sexual Activity: Yes; Male Contraception: No contraception data on record PAST MEDICAL HISTORY Diagnosis Date Breast cancer (HCC) 2010 stage 1- radiation and chemo PAST SURGICAL HISTORY Procedure Laterality Date BREAST LUMPECTOMY HX Right 2011 BX BREAST PERC NEED W/GUID 08/04/2011 UOQ U/S right breast bx DANDC, DIAG AND/OR THERAPEUTIC 2021 PAST SURGICAL HISTORY OF 11/27/1998 Lt breast bx--- benign FAMILY HISTORY Problem Relation Age of Onset other (sepsis) Brother Breast Cancer Maternal Grandmother 50's SOCIAL HISTORY Social History Tobacco Use Smoking status: Never Smokeless tobacco: Never Vaping Use Vaping status: Never Used Substance Use Topics Alcohol use: Not Currently Drug use: Never REVIEW OF SYSTEMS Abdomen: No abdominal pain, nausea, vomiting, diarrhea, or constipation. No bloating, early satiety, indigestion, or increased flatulence. Bladder: No dysuria, gross hematuria, urinary frequency, urinary urgency, or incontinence Breast: No breast lumps, nipple d/c, overlying skin changes, redness or skin retraction Allergies and current medication updated:Yes SENSITIVE EXAM: The sensitive examination was discussed with the Patient or Patient's Authorized Fire Sprinkler Apparatus Inspector. As applicable, any other physician, advance practice provider, medical student, or other health professional student that will be observing or involved in the sensitive examination for educational or training purposes was discussed with the Patient or Authorized Fire Sprinkler Apparatus Inspector. The Patient or Authorized Fire Sprinkler Apparatus Inspector has agreed to proceed with the sensitive examination. (Sensitive examination includes inspection and/or palpation of the breasts, pelvis, prostate and anorectal regions). EXAM: BP 110/62 Ht 4' 11.5 (1.51m) Wt 117 lb (53.1kg) BMI 23.24 kg/(m2). GENERAL: pleasant, female in no apparent distress HEENT: Normocephalic, atraumatic, mucus membranes moist, and no lesions NECK: Supple, full range of motion, no adenopathy, and thyroid normal DERMATOLOGY: Normal, without lesions, non-icteric, and non-hirsute BREAST: soft, non-tender, no dominant mass, normal nipple-areolar complex, no lymphadenopathy, no nipple discharge, and assymetric due to scars on right side CHEST: Normal inspiratory effort ABDOMEN: soft, non-tender, and no masses PELVIC: external genitalia normal, normal Bartholin's glands, urethra, [place]'s glands, no vulvar lesions, no cervical lesions, good vaginal support, physiologic discharge present, normal appearing perineal body and perianal region BIMANUAL: uterus normal size, shape and consistency, no adnexal masses, and non-tender RECTOVAGINAL: deferred. NEURO: alert and oriented x3,exam grossly non-focal EXTREMITIES: normal ASSESSMENT/PLAN: 1) Health maintenance: Pap done with HPV. Mammogram ordered Colon cancer screening: up to date with screening 2) Follow up one year or sooner as needed flu vaccine done MD Jose Thorpe Rebecca L, MD 09/23/2024 2:48 PM Signed Send letter about normal pap if she does not have mychart. Sharlene Chowdary MD Allergies As of Date: 09/16/2024 (No Known Allergies) Date Reviewed: 09/16/2024 Reviewed by: Sharlene Chowdary MD - Fully Assessed Reason for Visit: Yearly Exam [187] Immunizations [194] Cmt: Flu vaccination Primary Visit Diagnosis:Encounter for gynecological examination (general) (routine) without abnormal findings [Z01.419] Other Visit Diagnoses:Encounter for screening for human papillomavirus (HPV) [Z11.51] Pap smear for cervical cancer screening [Z12.4] History of breast cancer [Z85.3] Need for influenza vaccination [Z23] Order(s):PAP TEST [[id number]] Order #: [id number]. #:[id number] INFLUENZA VACCINE, AGE 6MO-64YR, TRIVALENT (AFLURIA, FLULAVAL, FLUVIRIN, FLUZONE) [[id number]] Order #: [id number] HIGH RISK HUMAN PAPILLOMA VIRUS (HPV), PCR FOR DETECTION AND GENOTYPING [[id number]] Reflex Order#: [id number] (Ord#:[id number])Spec . #:[id number] Prescriptions as of 10 (more content not included)... Normal [facility] HIGH RISK HUMAN PAPILLOMA ESTRELLITA (HPV), PCR FOR DETECTION AND GENOTYPINGon 09-16-2024 HPV 16 Ag Ql (Unsp spec) Not detected Normal Not detected [facility] Comment on above: Order Comment: Speci men Type: FLUID SPECIMEN Ordering Facility: [facility] Address: [address] [place] [address] Performed By: #### H PVHRT, [id number] #### [facility] CLIA [id number] [address] [place] [address] [place] [address] [place] HPV 18 Ag Ql (Unsp spec) Not detected Normal Not detected [facility] Comment on above: Order Comment: Speci men Type: FLUID SPECIMEN Ordering Facility: [facility] Address: [address] [place] [address] Performed By: #### H PVHRT, [id number] #### [facility] CLIA [id number] [address] [place] [address] [place] HPV 31+33+35+39+45+51+52+ 56+58+59+66+68 DNA DASHA+probe Ql (Cvx) Not detected Normal Not detected [facility] Comment on above: Order Comment: Speci men Type: FLUID SPECIMEN Ordering Facility: [facility] Address: [address] [place] [address] Result Comment: High Risk HPV Other Type includes HPV types 31, 33, 35, 39, 45, 51, 52, 56, 58, 59, 66 and 68. Performed By: #### H PVHRT, [id number] #### [facility] CLIA [id number] [address] [place] [address] [place] PAP TESTon 09-16-2024 ADEQUACY Satisfactory for interpretation. Normal [facility] Comment on above: Order Comment: Speci men Type: FLUID SPECIMEN Ordering Facility: [facility] Address: [address] [place] [address] Performed By: #### H PVHRT, [id number] #### [facility] CLIA [id number] [address] [place] [address] [place] CASE REPORT Normal [facility] Comment on above: Order Comment: Speci men Type: FLUID SPECIMEN Ordering Facility: [facility] Address: [address] [place] [address] Result Comment: Gyne cologic Cytology Report Case: [id number] Authorizing Provider: Sharlene Chowdary MD Collected: 09/16/2024 10:32 AM Ordering Location: OB/Gynecology Received: 09/17/2024 08:27 AM First Screen: [place], Andra, CT, ASCP Specimen: Pap Test, ThinPrep, Cervix Performed By: #### H PVHRT, [id number] #### [facility] CLIA [id number] [address] [place] [address] [place] CLINICAL HISTORY, CYTOLOGY, TRIAGE TECHNICIAN Routine Exam Normal [facility] Comment on above: Order Comment: Speci men Type: FLUID SPECIMEN Ordering Facility: [facility] Address: [address] [place] [address] Result Comment: Post Menopausal Performed By: #### H PVHRT, [id number] #### [facility] CLIA [id number] [address] [place] [address] [place] FINAL PERFORMING LAB Normal [facility] Comment on above: Order Comment: Speci men Type: FLUID SPECIMEN Ordering Facility: [facility] Address: [address] [place] [address] Result Comment: Tech nical component, labor supervisor screening performed at [facility], [address] [place] [address] CLIA# [id number] Diagnostic interpretation performed at [facility], [address] [place] [address] CLIA# [id number] Manager Customs: Pedro Reaves M.D. Performed By: #### H SHANIQUA, [id number] #### [facility] CLIA [id number] [address] [place] [address] [place] INTERPRETATION, CYTOLOGY, TRIAGE TECHNICIAN Normal [facility] Comment on above: Order Comment: Speci men Type: FLUID SPECIMEN Ordering Facility: [facility] Address: [address] [place] [address] Result Comment: Nega tive for intraepithelial lesion or malignancy. Performed By: #### H PVHRT, [id number] #### [facility] CLIA [id number] [address] [place] [address] [place] PAP DISCLAIMER COMMENT The Pap Smear is a screening test for cervical cancer. False negative results occur with all screening tests, emphasizing the need for rescreening at recommended intervals, and clinical correlation. Normal [facility] Comment on above: Order Comment: Speci men Type: FLUID SPECIMEN Ordering Facility: [facility] Address: [address] [place] [address] Performed By: #### H PVHRT, [id number] #### [facility] CLIA [id number] [address] [place] [address] [place] PAP DOOR CLOSER COMMENT This specimen has been analyzed by the ThinPrep Imaging System, an automated imaging and review system, which assists the laboratory in evaluating cells on ThinPrep Pap tests. Following automated imaging, selected guy from every slide are reviewed by a labor supervisor. Normal [facility] Comment on above: Order Comment: Speci men Type: FLUID SPECIMEN Ordering Facility: [facility] Address: [address] [place] [address] Performed By: #### H PVHRT, [id number] #### [facility] CLIA [id number] [address] [place] [address] [place] Basophil percentageOrdered B y: Florence Virgen on 07-07-2023 Chloride [Moles/Vol] 104 mmol/L 98-107 [facility] Cholesterol [Mass/Vol] 215 mg/dL <200 [facility] Comment on above: <200 mg/dL Desirable 200-240 mg/dL Borderline >240 mg/dL High Risk Glucose [Mass/Vol] 93 mg/dL 74-106 [facility] Potassium [Moles/Vol] 4.3 mmol/L 3.5-5.1 [facility] Sodium [Moles/Vol] 135 mmol/L 136-145 [facility] Triglyceride [Mass/Vol] 93 mg/dL <199 [facility] Comment on above: The drugs N-Acetylcy steine and Metamizole may falsely depress this assay.Serum Triglycerides Reference Interval Normal <150 mg/dL Borderline high 150 - 199 mg/dL High 200 - 499 mg/dL Very High > or = 500 mg/dL Laboratory - Chemistry and C hemistry - challengeOrdered By: Florence Virgen on 08-11-2023 CO2 [Moles/Vol] 26.0 mmol/L 21.0-32.0 [facility] Urea nitrogen/Creatinine [Mass ratio] 14.6 mg/mg 10-20 [facility] No Panel InformationOrdered By: Florence Virgen on 07-07-2023 Estimated GFR (MDRD) Amer 77 mL/min >60 [facility] Comment on above: GFR Calc Estimated GFR (MDRD) Non-Af Amer 63 mL/min >60 [facility] Comment on above: Non- GFR Calc Serum or plasma calcium king urement (mass/volume)Ordered By: Florence Vigren on 07-07-2023 Calcium [Mass/Vol] 9.6 mg/dL 8.5-10.1 [facility] Serum or plasma cholesterol in HDL measurement (mass/volume)Ordered By: Florence Virgen on 07-07-2023 Cholesterol in HDL [Mass/Vol] 66 mg/dL >40 [facility] Comment on above: The drugs N-Acetylcy steine and Metamizole may falsely depress this assay. Reference Range HDL <40 mg/dL Low HDL Cholesterol HDL >or= 60 mg/dL High HDL Cholesterol Serum or plasma cholesterol in VLDL measurement (mass/volume)Ordered By: Florence Virgen on 07-07-2023 Cholesterol in VLDL [Mass/Vol] 19 mg/dL 5-40 [facility] Serum or plasma creatinine m easurement (mass/volume)Ordered By: Florence Virgen on 07-07-2023 Creatinine [Mass/Vol] 0.96 mg/dL 0.55-1.02 [facility] Comment on above: The validity of the calculated GFR & GFRAA in patients over 70 years has not been determined. Clinical correlation is essential. Serum or plasma low density lipoprotein (LDL) cholesterol measurement (mass/volume)Ordered By: Florence Virgen on 07-07-2023 Cholesterol in LDL [Mass/Vol] 130 mg/dL 0-130 [facility] Serum or plasma urea nitroge n measurement (mass/volume)Ordered By: Florence Virgen on 07-07-2023 Urea nitrogen [Mass/Vol] 14 mg/dL 7-18 [facility] Thin prep Papanicolaou smear with manual screeningOrdered By: Florence Virgen on 07-07-2023 Thin prep Papanicolaou smear with manual screening 5 5-15 [facility] Final Surgical Pathology Rep [facility] 05-08-2023 Final Surgical Pathology Report . Pathology Reports Accession: Collected Date/Time: Received Date/Time: Pathologist: [id number] 05/05/2023 08:00 EDT 05/05/2023 11:18 EDT GATITO ALEGRIA MD Final Surgical Pathology Report DIAGNOSIS: ENDOMETRIAL CURETTINGS: - SCANT FRAGMENTS OF ATROPHIC ECTOCERVICAL MUCOSA - INSUFFICIENT ENDOMETRIAL TISSUE FOR EVALUATION CLINICAL INFORMATION: Procedure: EXAM UNDER ANESTHESIA, DILATION AND CURETTAGE Preoperative diagnosis: PELVIC PAIN, THICKENED ENDOMETRIUM, CERVICAL STENOSIS Postoperative diagnosis: PELVIC PAIN, THICKENED ENDOMETRIUM, CERVICAL STENOSIS SPECIMEN: A ENDOMETRIAL CURETTINGS GROSS DESCRIPTION: A. Received in formalin, labeled with the patients name, Case #[id number], and endometrial curettings are multiple hemorrhagic pinpoint curettings aggregating to 0.2 x 0.2 by less than 0.1 cm. Tissue is submitted on filter paper. TS - 1 Dictated by JAZLYN OTT MICROSCOPIC DESCRIPTION: The microscopic examination is performed, except in the case of Gross Only. Electronically Signed by Pathology Report verified by [facility] GATITO ALEGRIA Sign out Date: 05/08/2023 18:01 Performing Lab: [facility], [address] [place] [address] Pathology Dept Disclaimer If ancillary studies were utilized, the following Laboratory Developed Test (LDT) disclaimer will apply: Under CLIA requirements, [facility] is qualified to perform high complexity testing. For all ancillary stains, positive and negative controls stain appropriately. Performance characteristics of immunohistochemical and chromogenic in-situ hybridization tests have been determined by [facility]. These tests are used for clinical purposes, They should not be regarded as investigational or for research. Normal [facility] ([place] ABO/Rh (Gel)on 05-05-2023 ABO/Rh Interp Positive Invalid Interpretation Code [facility]) Comment on above: Performed By: #### A ELIANA ABSGEL #### [place] [id number] ABS (Gel)on 05-05-2023 ABSC Interp (Gel) Negative Normal [facility] ([place]) Comment on above: Performed By: #### A TIKA MONROY #### [facility] [address] [place] [address] Absolute lymphocyte countOrd ered By: Shaunna Wang on 04-26-2023 Lymphocytes Auto (Unsp spec) [#/Vol] 1.73 10*3/uL 0.83-4.51 [facility] Basophil percentageOrdered B y: Shaunna Wang on 04-26-2023 Basophils/100 WBC (Bld) 0.7 % 0-1 [facility] Bilirubin [Mass/Vol] 0.40 mg/dL 0.20-1.00 [facility] Comment on above: For patients on eltr ombopag therapy, use of Dimension [place] TBIL is not recommended. Chloride [Moles/Vol] 107 mmol/L 98-107 [facility] Eosinophils/100 WBC (Bld) 1.2 % 0-5 [facility] Glucose [Mass/Vol] 100 mg/dL 74-106 [facility] Comment on above: Fasting Glucose resu lt from 100 to 125 mg/dL suggests IMPAIRED HOMEOSTASIS per A.D.A. criteria. Neutrophils (Bld) [#/Vol] 2.0 10*3/uL 2.0-7.7 [facility] Neutrophils/100 WBC (Bld) 48.5 % 47-70 [facility] Potassium [Moles/Vol] 4.2 mmol/L 3.5-5.1 [facility] Protein [Mass/Vol] 7.6 g/dL 6.4-8.2 [facility] Sodium [Moles/Vol] 140 mmol/L 136-145 [facility] WBC (Bld) [#/Vol] 4.1 10*3/uL 4.4-11.0 [facility] Blood erythrocytes count (nu mber/volume)Ordered By: Shaunna Wang on 04-26-2023 RBC (Bld) [#/Vol] 4.57 10*6/uL 4.2-5.4 [facility] Blood hemoglobin measurement (mass/volume)Ordered By: Shaunna Wang on 04-26-2023 Hemoglobin (Bld) [Mass/Vol] 13.6 g/dL 12.0-15.0 [facility] Blood lymphocytes/100 leukoc ytesOrdered By: Shaunnaortiz Wang on 04-26-2023 Lymphocytes/100 WBC (Bld) 42.3 % 19-41 [facility] Blood monocytes/100 leukocyt esOrdered By: Shaunnaortiz Wang on 04-26-2023 Monocytes/100 WBC (Bld) 7.1 % 0-10 [facility] Blood platelet mean volumeOr dered By: Shaunna Wang on 04-26-2023 Platelet mean volume (Bld) [Entitic vol] 9.7 fL 6.2-12.0 [facility] Determination of erythrocyte mean corpuscular volume (MCV)Ordered By: Shaunnaortiz Wang on 04-26-2023 MCV (RBC) [Entitic vol] 93.7 fL 81-99 [facility] Hematocrit Auto (Bld) [Volum e fraction]Ordered By: Shaunnaortiz Wang on 04-26-2023 Hematocrit (Bld) [Volume fraction] 42.8 % 37-47 [facility] Laboratory - Chemistry and C hemistry - challengeOrdered By: Glasco Kathleen on 04-26-2023 ALP [Catalytic activity/Vol] 79 U/L 45-117 [facility] ALT [Catalytic activity/Vol] 34 U/L 13-56 [facility] CO2 [Moles/Vol] 26.0 mmol/L 21.0-32.0 [facility] Globulin (S) [Mass/Vol] 3.7 g/dL 2.2-4.2 [facility] Urea nitrogen/Creatinine [Mass ratio] 21.4 mg/mg 10-20 [facility] Laboratory - Hematology and Cell countsOrdered By: Shaunnaortiz Wang on 04-26-2023 Erythrocyte distribution width (RBC) [Entitic vol] 43.8 fL 35.1-43.9 [facility] Erythrocyte distribution width (RBC) [Ratio] 12.8 % 11.6-14.6 [facility] Immature granulocytes/100 WBC (Bld) 0.200 % 0.0-0.9 [facility] Comment on above: IG% - Immature Granu locytes (promyelocytes, myelocytes and metamyelocytes) > 1% indicates that a LEFT SHIFT is Present. MCH (RBC) [Entitic mass] 29.8 pg 27.0-32.0 [facility] Nucleated RBC/100 WBC (Bld) [Ratio] 0 % 0-5 [facility] MCHC Auto (RBC) [Mass/Vol]Or dered By: Shaunna Wang on 04-26-2023 MCHC (RBC) [Mass/Vol] 31.8 g/dL 32-36 [facility] No Panel InformationOrdered By: Shaunna Wang on 04-26-2023 Estimated GFR (MDRD) Amer 102 mL/min >60 [facility] Comment on above: GFR Calc Estimated GFR (MDRD) Non-Af Amer 84 mL/min >60 [facility] Comment on above: Non- GFR Calc Platelets bldOrdered By: Genesis Wang on 04-26-2023 Platelets (Bld) [#/Vol] 262 10*3/uL 150-450 [facility] Serum or plasma albumin king urement (mass/volume)Ordered By: Shaunna Wang on 04-26-2023 Albumin [Mass/Vol] 3.9 g/dL 3.2-5.0 [facility] Serum or plasma albumin/glob ulin mass ratioOrdered By: Shaunna Wang on 04-26-2023 Albumin/Globulin [Mass ratio] 1.1 {ratio} 0.9-2.4 [facility] Serum or plasma calcium king urement (mass/volume)Ordered By: Shaunna Wang on 04-26-2023 Calcium [Mass/Vol] 9.1 mg/dL 8.5-10.1 [facility] Serum or plasma creatinine m easurement (mass/volume)Ordered By: Shaunna Wang on 04-26-2023 Creatinine [Mass/Vol] 0.75 mg/dL 0.55-1.02 [facility] Comment on above: The validity of the calculated GFR & GFRAA in patients over 70 years has not been determined. Clinical correlation is essential. Serum or plasma urea nitroge n measurement (mass/volume)Ordered By: Shaunna Wang on 04-26-2023 Urea nitrogen [Mass/Vol] 16 mg/dL 7-18 [facility] Thin prep Papanicolaou smear with manual screeningOrdered By: Shaunna Wang on 04-26-2023 Thin prep Papanicolaou smear with manual screening 23 U/L 15-37 [facility] Thin prep Papanicolaou smear with manual screening 7 5-15 [facility] Cervical or vagninal specime n microscopic examination by cytology stain (reported asOrdered By: Sully Barrios on 03-13-2023 Cytology report Cyto stain Doc (Cvx/Vag) Comment . [facility] Comment on above: The Pap smear is a s creening test designed to aid in thedetection of premalignant and malignant conditions of theuterine cervix. It is not a diagnostic procedure andshould not be used as the sole means of detecting cervicalcancer. Both false-positive and false-negative reports dooccur. Detection in cervical specim en of any of human papilloma virus (HPV) 16, 18, 31, 33,Ordered By: Sully Barrios on 03-13-2023 HPV 16+18+31+33+35+39+45+ 51+52+56+58+59+66+68 DNA Probe+sig amp Ql (Cvx) Negative Negative [facility] Comment on above: This nucleic acid am plification test detects fourteen high- risk HPV types (16,18,31,33,35,39,45,51,52,56,58,59,66,68)without differentiation. Laboratory - CytologyOrdered By: Sully Barrios on 03-13-2023 Business Loan Processor Cyto stain Nom (Cvx/Vag) [ID] Comment . [facility] Comment on above: Ciarra Salvador, Cytot echnologist (ASCP) Laboratory - Miscellaneous t estsOrdered By: Sully Barrios on 03-13-2023 Service comment (Unsp spec) [Interp] Comment . [facility] Comment on above: This liquid based Th inPrep(R) pap test was screened withthe use of an image guided system. Service comment (Unsp spec) [Interp] . . [facility] Liquid-based cerv Pap + CT/G C by DASHA w reflex to high-risk HPV for ASCUSOrdered By: Sully Barrios on 03-13-2023 Cytology report Cyto stain.thin prep Doc (Cvx/Vag) Comment . [facility] Comment on above: Criteria not met, HP V Genotype not performed.Performed at: [facility] - [facility]Charles [place]Las [place], [place] [id number] Director: Sepideh Whitten MD, Phone: [phone] at: = - [facility] [address] [place] [id number] Director: Sepideh Whitten MD, Phone: [phone] No Panel InformationOrdered By: Sully Barrios on 03-13-2023 Pathology report final diagnosis Narrative Comment . [facility] Comment on above: NEGATIVE FOR INTRAEP ITHELIAL LESION OR MALIGNANCY.CELLULAR CHANGES ASSOCIATED WITH ATROPHY ARE PRESENT. Laboratory - Microbiology an d Antimicrobial susceptibilityon 10-22-2022 S. pyogenes Ag IA Ql (Unsp spec) Negative [facility] Work Phone: Vital Signs Date Time Vital Sign Value Performing Clinician Faci lity 09-16-2024 09:58-0400 Body height 151.1 cm Sharlene Chowdary MD Work Phone: [facility] 09-16-2024 09:58-0400 Body mass index (BMI) [Ratio] 23.24 kg/m2 Sharlene Chowdary MD Work Phone: [facility] 09-16-2024 09:58-0400 Body weight 53.07 kg Sharlene Chowdary MD Work Phone: [facility] 09-16-2024 09:58-0400 Diastolic blood pressure 62 mm[Hg] Sharlene Chowdary MD Work Phone: [facility] 09-16-2024 09:58-0400 Systolic blood pressure 110 mm[Hg] Sharlene Chowdary MD Work Phone: [facility] 10-22-2022 10:18-0500 Body temperature 98.2 [degF] Dr. Florence Virgen Work Phone: [facility] Work Phone: 10-22-2022 10:18-0500 Diastolic blood pressure 64 mm[Hg] Dr. Florence Virgen Work Phone: [facility] Work Phone: 10-22-2022 10:18-0500 Heart rate 94 /min Dr. Florence Virgen Work Phone: [facility] Work Phone: 10-22-2022 10:18-0500 Respiratory rate 14 /min Dr. Florence Virgen Work Phone: [facility] Work Phone: 10-22-2022 10:18-0500 SaO2% (BldA) [Mass fraction] 99 % Dr. Florence Virgen Work Phone: [facility] Work Phone: 10-22-2022 10:18-0500 Systolic blood pressure 108 mm[Hg] Dr. Florence Virgen Work Phone: [facility] Work Phone: Encounters Encounter Date Encounter Type Care Provider Facility Start: 10-16-2025 ambulatory [facility] Start: 08-04-2025 End: 08-04-2025 ambulatory [facility] Start: 07-04-2025 End: 07-04-2025 ambulatory [facility] Start: 07-04-2025 End: 07-04-2025 Subsequent hospital visit by physician Kaye Terry MD Work Phone: [facility] Comment on above: Elevated liver enzym es Start: 06-25-2025 End: 06-25-2025 ambulatory [facility] Start: 06-23-2025 End: 06-23-2025 ambulatory [facility] Start: 06-20-2025 End: 06-20-2025 ambulatory [facility] Start: 06-20-2025 Encounter for genera l adult medical examination without abnormal findings [facility] Start: 11-07-2024 End: 11-07-2024 ambulatory Florence Virgen Facility:[facility] Start: 09-16-2024 End: 09-16-2024 ambulatory SHARLENE CHOWDARY Facility:[facility] Start: 09-16-2024 End: 09-16-2024 Patient encounter procedure Sharlene Chowdary MD Work Phone: OB/Gynecology Comment on above: Encounter for gyneco logical examination (general) (routine) without abnormal findings (Primary Dx); Encounter for screening for human papillomavirus (HPV); Pap smear for cervical cancer screening; History of breast cancer; Need for influenza vaccination Start: 09-16-2024 End: 09-16-2024 Patient encounter status Sharlene Chowdary MD Work Phone: [facility] Start: 11-06-2023 End: 11-06-2023 ambulatory [facility] Work Phone: Start: 11-06-2023 End: 11-06-2023 Patient encounter procedure [facility] Work Phone: Start: 07-07-2023 End: 07-07-2023 ambulatory [facility] Work Phone: Start: 07-07-2023 End: 07-07-2023 Patient encounter procedure [facility] Start: 06-01-2023 End: 06-02-2023 ambulatory CYRUS CLINTON APRN-[employer]SI[employer] MANAGER Facility:A Start: 06-01-2023 End: 06-01-2023 Patient encounter procedure CYRUS CLINTON SERVICE OFFICER[facility] Start: 05-05-2023 End: 05-05-2023 ambulatory JUDIT TORRES MD Facility:A Start: 04-26-2023 End: 04-26-2023 ambulatory [facility] Work Phone: Start: 04-26-2023 End: 04-26-2023 Patient encounter procedure [facility] Work Phone: Start: 04-20-2023 End: 04-21-2023 ambulatory JUDIT TORRES MD Facility:A Start: 03-13-2023 End: 03-13-2023 ambulatory [facility] Work Phone: Start: 03-13-2023 End: 03-13-2023 Patient encounter procedure [facility], Specimen Start: 10-27-2022 End: 10-27-[address] Florence Virgen Work Phone: [facility] Work Phone: Start: 10-27-2022 End: 10-27-[address] Florence Virgen Work Phone: [facility] Start: 10-22-2022 End: 10-22-[address] Florence Virgen Work Phone: [facility] Start: 10-17-2022 ambulatory FLORENCE VIRGEN Facility: [facility] Start: 02-04-2022 ambulatory FLORENCE VIRGEN Facility: [facility] Procedures Date Procedure Procedure Detail Performing Clinician Start: 07-04-2025 Us abdominal real ti me w/image limited Kaye Terry MD Work Phone: Start: 06-20-2025 Adult depression scr eening assessment Kaye Terry MD Work Phone: Start: 11-06-2023 Screening mammography Start: 05-05-2023 Dilation and curettage CYRUS CLINTON SERVICE OFFICER-ASSISTANT BRANCH OPERATIONS MANAGER Start: 04-26-2023 Plain chest X-ray Start: 10-27-2022 Screening mammography D rukhsana Virgen Work Phone: Start: 10-14-2021 Mammography Kaye baxter MD Work Phone: Start: 08-27-2011 Lumpectomy of right breast CYRUS CLINTON SERVICE OFFICER-ASSISTANT BRANCH OPERATIONS MANAGER Tonsillectomy CYRUS CLINTON SERVICE OFFICER-ASSISTANT BRANCH OPERATIONS MANAGER Plan of Treatment Date Care Activity Detail Author Start: 2038 RSV Vaccine (1 - 1-d ose 75+ series) RSV Vaccine (1 - 1-dose 75+ series) [facility] Start: 02-16-2035 Administration of diphtheria + tetanus + acellular pertussis vaccine DTAP/TDAP/TD VACCINE (3 - Td or Tdap) [facility] Start: 03-05-2034 Screening for malign ant neoplasm of colon [facility] Start: 09-16-2027 HPV/COTEST HPV/COTEST [facility] Start: 09-16-2027 Screening for malign ant neoplasm of cervix CERVICAL CANCER SCREENING [facility] Start: 06-23-2026 Hemoglobin A1c measurement HEMOGLOBIN A1C PREDIABETES [facility] Start: 06-21-2026 ANNUAL WELLNESS VISIT ANNUAL WELLNES S VISIT [facility] Start: 06-20-2026 Depression screening using PHQ-9 (Patient Health Questionnaire 9) score DEPRESSION SCREENING [facility] Start: 06-19-2026 End: 06-19-2026 Patient encounter procedure 06/19/2026 11:00 AM EDT Office Visit [address] [address] Kaye Terry MD [address] [place] [id number] [facility] Start: 10-16-2025 End: 10-16-2025 Patient encounter procedure 10/16/2025 1:30 PM EST [facility] [address] [place] [address] Kaye Terry MD [address] [place] [id number] [facility] Start: 09-17-2025 End: 09-17-2025 Patient encounter procedure 09/17/2025 1:40 PM EDT Office Visit OB/Gynecology [address] [place], [place] [id number] Sharlene Chowdary MD [address] [place] [id number] Annual OB/Gynecology Comment on above: Annual Start: 07-28-2025 Influenza vaccinatio n given INFLUENZA VACCINE (#1) [facility] Start: 12-31-2024 Zoster vaccine hzv l lizzy for subcutaneous use ZOSTER (SHINGLES) VACCINE (2 of 2) [facility] Start: 07-28-2024 Covid-19 Vaccine ( season) Covid-19 Vaccine ( season) [facility] Start: 10-18-2023 Urine microalbumin profile DTaP,Tdap,Td Vaccine (2 - Td or Tdap) [facility] Start: 10-14-2022 Screening for malign ant neoplasm of breast [facility] Start: 2013 Shingrix Vaccine (1 of 2) Shingrix Vaccine (1 of 2) [facility] Start: 2008 Diabetes Screening Diabetes Screenin g [facility] Start: 2008 Lipid panel Lipid Screening [facility] Start: 2008 Screening for malign ant neoplasm of colon [facility] Start: 1984 Screening for malign ant neoplasm of cervix Cervical Cancer Screening [facility] Start: 1981 Anxiety Screening Anxiety Screening [facility] Start: 1981 Depression Screening Depression Scre ening [facility] Start: 1981 Hepatitis C screening Hepatitis C Sc reening [facility] Start: 1981 HIV screening HIV Screening [facility] Start: 1963 Screening for malign ant neoplasm of cervix PAP SMEAR [facility] PAP TEST PAP TEST Lab Duyen garcia Encounter for gynecological examination (general) (routine) without abnormal findings Encounter for screening for human papillomavirus (HPV) Pap smear for cervical cancer screening Ordered: 09/16/2024 [facility] Work Phone: Comment on above: Ordered: 09/16/2024 Path report.final Dx Spec [facility] Immunizations Immunization Date Immunization Notes Care Provider Fa tala 06-20-2025 Pneumococcal Conjuga te Pcv21, Polysaccharide Ulx285, Pf Kaye Terry MD Work Phone: [facility] 11-05-2024 zoster vaccine, unspecified formulation Kaye Terry MD Work Phone: [facility] 09-16-2024 influenza, seasonal, injectable Sharlene Chowdary MD Work Phone: [facility] 09-16-2024 influenza virus vacc ine, unspecified formulation Kaye Terry MD Work Phone: [facility] 08-23-2023 Influenza, injectabl e, Madin Berenice Canine Kidney, preservative free, quadrivalent Sharlene Chowdary MD Work Phone: [facility] 09-19-2022 influenza virus vacc ine, unspecified formulation CYRUS PIERSONDEZ SERVICE OFFICER-ASSISTANT BRANCH 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 MANAGER [facility] 09-19-2022 influenza, injectabl e, quadrivalent, preservative free Sharlene Chowdary MD Work Phone: [facility] 09-19-2022 SARS-CoV-2 (CV19)mRNA-1273 bivalent vac CYRUS CLINTON SERVICE OFFICER-ASSISTANT BRANCH OPERATIONS MANAGER [facility] 10-19-2021 SARS-CoV-2 (COVID-19 ) mRNA-1273 vaccine CYRUS CLINTON SERVICE OFFICER-ASSISTANT BRANCH OPERATIONS MANAGER [facility] 09-29-2021 influenza virus vacc ine, unspecified formulation CYRUS CLINTON SERVICE OFFICER-ASSISTANT BRANCH OPERATIONS MANAGER [facility] 09-29-2021 influenza, injectabl e, quadrivalent, preservative free Sharlene Chowdary MD Work Phone: [facility] 03-18-2021 SARS-CoV-2 (COVID-19 ) mRNA-1273 vaccine CYRUS CLINTON SERVICE OFFICER-ASSISTANT BRANCH OPERATIONS MANAGER [facility] Comment on above: Result Comment: 2022: [id number] 02-18-2021 SARS-CoV-2 (COVID-19 ) mRNA-1273 vaccine CYRUS CLINTON SERVICE OFFICER-ASSISTANT BRANCH OPERATIONS MANAGER [facility] Comment on above: Result Comment: 2022: [id number] 08-28-2020 influenza virus vacc ine, unspecified formulation CYRUS CLINTON SERVICE OFFICER-ASSISTANT BRANCH OPERATIONS MANAGER [facility] 08-28-2020 influenza, injectabl e, quadrivalent, preservative free Sharlene Chowdary MD Work Phone: [facility] 09-13-2018 influenza virus vacc ine, unspecified formulation CYRUS CLINTON SERVICE OFFICER-ASSISTANT BRANCH OPERATIONS MANAGER [facility] 09-13-2018 influenza, seasonal, injectable Sharlene Chowdary MD Work Phone: [facility] 09-19-2017 influenza virus vacc ine, unspecified formulation CYRUS CLINTON SERVICE OFFICER-ASSISTANT BRANCH OPERATIONS MANAGER [facility] 09-19-2017 influenza, seasonal, injectable, preservative free Sharlene Chowdary MD Work Phone: [facility] 05-12-2017 typhoid vaccine, osman e, oral CYRUS CLINTON SERVICE OFFICER-ASSISTANT BRANCH OPERATIONS MANAGER [facility] 11-30-2015 hepatitis A vaccine, adult dosage CYRUS CLINTON SERVICE OFFICER-ASSISTANT BRANCH OPERATIONS MANAGER [facility] 09-14-2015 influenza virus vacc ine, unspecified formulation CYRUS CLINTON SERVICE OFFICER-ASSISTANT BRANCH OPERATIONS MANAGER [facility] 09-14-2015 influenza, seasonal, injectable, preservative free Sharlene Chowdary MD Work Phone: [facility] 03-31-2015 adenovirus, type 4 a nd type 7, live, oral CYRUS CLINTON SERVICE OFFICER-ASSISTANT BRANCH OPERATIONS MANAGER [facility] 03-31-2015 hepatitis A vaccine, adult dosage CYRUS CLINTON SERVICE OFFICER-ASSISTANT BRANCH OPERATIONS MANAGER [facility] 03-31-2015 typhoid capsular polysaccharide vaccine Sharlene Chowdary MD Work Phone: [facility] 09-30-2014 influenza virus vacc ine, unspecified formulation CYRUS CLINTON SERVICE OFFICER-ASSISTANT BRANCH OPERATIONS MANAGER [facility] 09-30-2014 influenza, seasonal, injectable Sharlene Chowdary MD Work Phone: [facility] 10-18-2013 tetanus toxoid, redu nolan diphtheria toxoid, and acellular pertussis vaccine, adsorbed CYRUS CLINTON SERVICE OFFICER-ASSISTANT BRANCH OPERATIONS MANAGER [facility] 10-05-2012 influenza virus vacc ine, unspecified formulation CYRUS CLINTON SERVICE OFFICER-ASSISTANT BRANCH OPERATIONS MANAGER [facility] 10-05-2012 influenza, seasonal, injectable Sharlene Chowdary MD Work Phone: [facility] Payers Date Payer Category Payer Commercial Indemnity [facility] [id number] 2024 Self-pay [id number] 2022 Unknown MMO MMO [employer] PPO [id number] 2022-Present [phone] [address] [place] [address] PPO [id number] 2007 Unknown [id number] 1963 Unknown [id number]. 594 1963 Unknown [id number]. 594 1963 Unknown [id number] [id number]. 627 1963 Unknown [id number]. 627 1963 Unknown [id number] [id number]. 627 1963 Unknown [id number] [id number]. 297 1963 Unknown [id number] [id number]. 297 1963 Unknown [id number] [id number]. 297 1963 Unknown [id number] [id number]. 297 1963 Unknown [id number] [id number]. 297 1963 Unknown [id number] [id number]. 297 1963 Unknown [id number] [id number]. 297 Private Health Insurance [id number] Unknown [id number] 462 Social History Date Type Detail [facility] Work Phone: Start: 1965 Sex Assigned At Female [facility] Start: 04-20-2023 End: 06-20-2025 Tobacco smoking status Never smoked tobacco (finding) [facility] Sex Assigned At Sex [facility] Start: 09-16-2024 End: 06-20-2025 Tobacco use and exposure Smokeless tobacco non-user [facility] Start: 09-16-2024 Alcoholic beverage intake Ex-drinker (finding) [facility] Start: 09-16-2024 End: 06-20-2025 History of Social function [facility] Start: 09-16-2024 End: 06-20-2025 Tobacco use panel [facility] Start: 05-16-2025 National Score (1-100), lower number is lower risk 50 [facility] Start: 1965 Sex assigned at Not on file [facility] Clinical Notes 03-13-2023 to 09-16-2024 Sharlene Chowdary MD - 09/16/2024 9:46 AM EDT Note Date & Type Note Facility 09-16-2024 Note HNO ID: [id number] Author: SHARLENE CHOWDARY MD Service: ? Author Type: Physician Type: Progress Notes Filed: 09/16/2024 10:32 Note Text: Keila is a 59 year old who presents for an annual gynecologic exam without complaints. H/o breast ca Postmenopausal: yes HRT use: No. 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 History LMP: Postmenopausal Age at Menarche: Age at First : Age at Menopause: Ballet Dancer History Comments: Sexual Activity: Yes; Male Contraception: No contraception data on record PAST MEDICAL HISTORY Diagnosis Date Breast cancer (HCC) 2010 stage 1- radiation and chemo PAST SURGICAL HISTORY Procedure Laterality Date BREAST LUMPECTOMY HX Right 2010 BX BREAST PERC NEED W/GUID 08/04/2011 UOQ U/S right breast bx DANDC, DIAG AND/OR THERAPEUTIC 2021 PAST SURGICAL HISTORY OF 11/27/1998 Lt breast bx--- benign FAMILY HISTORY Problem Relation Age of Onset other (sepsis) Brother Breast Cancer Maternal Grandmother 50's SOCIAL HISTORY Social History Tobacco Use Smoking status: Never Smokeless tobacco: Never Vaping Use Vaping status: Never Used Substance Use Topics Alcohol use: Not Currently Drug use: Never REVIEW OF SYSTEMS Abdomen: No abdominal pain, nausea, vomiting, diarrhea, or constipation. No bloating, early satiety, indigestion, or increased flatulence. Bladder: No dysuria, gross hematuria, urinary frequency, urinary urgency, or incontinence Breast: No breast lumps, nipple d/c, overlying skin changes, redness or skin retraction Allergies and current medication updated:Yes SENSITIVE EXAM: The sensitive examination was discussed with the Patient or Patient's Authorized Fire Sprinkler Apparatus Inspector. As applicable, any other physician, advance practice provider, medical student, or other health professional student that will be observing or involved in the sensitive examination for educational or training purposes was discussed with the Patient or Authorized Fire Sprinkler Apparatus Inspector. The Patient or Authorized Fire Sprinkler Apparatus Inspector has agreed to proceed with the sensitive examination. (Sensitive examination includes inspection and/or palpation of the breasts, pelvis, prostate and anorectal regions). EXAM: BP 110/62 Ht 4' 11.5 (1.51m) Wt 117 lb (53.1kg) BMI 23.24 kg/(m2). GENERAL: pleasant, female in no apparent distress HEENT: Normocephalic, atraumatic, mucus membranes moist, and no lesions NECK: Supple, full range of motion, no adenopathy, and thyroid normal DERMATOLOGY: Normal, without lesions, non-icteric, and non-hirsute BREAST: soft, non-tender, no dominant mass, normal nipple-areolar complex, no lymphadenopathy, no nipple discharge, and assymetric due to scars on right side CHEST: Normal inspiratory effort ABDOMEN: soft, non-tender, and no masses PELVIC: external genitalia normal, normal Bartholin's glands, urethra, [place]'s glands, no vulvar lesions, no cervical lesions, good vaginal support, physiologic discharge present, normal appearing perineal body and perianal region BIMANUAL: uterus normal size, shape and consistency, no adnexal masses, and non-tender RECTOVAGINAL: deferred. NEURO: alert and oriented x3,exam grossly non-focal EXTREMITIES: normal ASSESSMENT/PLAN: 1) Health maintenance: Pap done with HPV. Mammogram ordered Colon cancer screening: up to date with screening 2) Follow up one year or sooner as needed flu vaccine done Sharlene Chowdary MD [facility] 09-16-2024 History of Present illness Narrative Rin is a 59 year old who presents for an annual gynecologic exam without complaints. H/o breast ca Postmenopausal: yes HRT use: No. 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 History LMP: Postmenopausal Age at Menarche: Age at First : Age at Menopause: Ballet Dancer History Comments: Sexual Activity: Yes; Male Contraception: No contraception data on record PAST MEDICAL HISTORY Diagnosis Date Breast cancer (HCC) 2010 stage 1- radiation and chemo PAST SURGICAL HISTORY Procedure Laterality Date BREAST LUMPECTOMY HX Right 2011 BX BREAST PERC NEED W/GUID 08/04/2011 UOQ U/S right breast bx D&C, DIAG AND/OR THERAPEUTIC 2021 PAST SURGICAL HISTORY OF 11/27/1998 Lt breast bx--- benign FAMILY HISTORY Problem Relation Age of Onset other (sepsis) Brother Breast Cancer Maternal Grandmother 50's SOCIAL HISTORY Social History Tobacco Use Smoking status: Never Smokeless tobacco: Never Vaping Use Vaping status: Never Used Substance Use Topics Alcohol use: Not Currently Drug use: Never REVIEW OF SYSTEMS Abdomen: No abdominal pain, nausea, vomiting, diarrhea, or constipation. No bloating, early satiety, indigestion, or increased flatulence. Bladder: No dysuria, gross hematuria, urinary frequency, urinary urgency, or incontinence Breast: No breast lumps, nipple d/c, overlying skin changes, redness or skin retraction Allergies and current medication updated:Yes SENSITIVE EXAM: The sensitive examination was discussed with the Patient or Patient's Authorized Fire Sprinkler Apparatus Inspector. As applicable, any other physician, advance practice provider, medical student, or other health professional student that will be observing or involved in the sensitive examination for educational or training purposes was discussed with the Patient or Authorized Fire Sprinkler Apparatus Inspector. The Patient or Authorized Fire Sprinkler Apparatus Inspector has agreed to proceed with the sensitive examination. (Sensitive examination includes inspection and/or palpation of the breasts, pelvis, prostate and anorectal regions). EXAM: BP 110/62 Ht 4' 11.5 (1.51m) Wt 117 lb (53.1kg) BMI 23.24 kg/(m^2). GENERAL: pleasant, female in no apparent distress HEENT: Normocephalic, atraumatic, mucus membranes moist, and no lesions NECK: Supple, full range of motion, no adenopathy, and thyroid normal DERMATOLOGY: Normal, without lesions, non-icteric, and non-hirsute BREAST: soft, non-tender, no dominant mass, normal nipple-areolar complex, no lymphadenopathy, no nipple discharge, and assymetric due to scars on right side CHEST: Normal inspiratory effort ABDOMEN: soft, non-tender, and no masses PELVIC: external genitalia normal, normal Bartholin's glands, urethra, [place]'s glands, no vulvar lesions, no cervical lesions, good vaginal support, physiologic discharge present, normal appearing perineal body and perianal region BIMANUAL: uterus normal size, shape and consistency, no adnexal masses, and non-tender RECTOVAGINAL: deferred. NEURO: alert and oriented x3,exam grossly non-focal EXTREMITIES: normal ASSESSMENT/PLAN: 1) Health maintenance: Pap done with HPV. Mammogram ordered Colon cancer screening: up to date with screening 2) Follow up one year or sooner as needed flu vaccine done Sharlene Chowdary MD documented in this encounter [facility] 03-13-2023 Note [facility] Pap Smear Specimen Adequacy March 13, 2023 9:28am Comment . Satisfactory for evaluation. Endocervical component may not bedistinguished in cases of atrophy. Comment on above: Satisfactory for daquan luation. Endocervical component may not bedistinguished in cases of atrophy. 03-13-2023 Note [facility] Pap Smear Specimen Adequacy March 13, 2023 9:28am Comment . Satisfactory for evaluation. Endocervical component may not bedistinguished in cases of atrophy. Comment on above: Satisfactory for daquan luation. Endocervical component may not bedistinguished in cases of atrophy. Evaluation + Plan note No data available for this section [facility] Evaluation note Diagnosis Onset Date Sinusitis, acute maxillary a cute [facility] Work Phone: Evaluation noteNo assessment information available [facility] Work Phone: Evaluation note* Diagnosis Encounter for gynecological examination (general) (routine) without abnormal findings- Primary Encounter for screening for human papillomavirus (HPV) Special screening examination for human papillomavirus (HPV) Pap smear for cervical cancer screening Screening for malignant neoplasm of the cervix History of breast cancer Personal history of malignant neoplasm of breast Need for influenza vaccination Need for prophylactic vaccination and inoculation against influenza documented in this encounter [facility] Diagnosis Elevated liver enzymes Nonspecific elevation of levels of transaminase or lactic acid dehydrogenase (LDH) [facility] No data available for this section [facility] Progress note No data available for this section [facility] Reason for visit Narrative* Procedure Authorization (Routine) - Closed Specialty Diagnoses / Procedures Referred By Contac t Referred To Contact Diagnoses Elevated liver enzymes Procedures US Liver Kaye Terry MD [address] [place] [address] Phone: tel: fax: [facility] [address] [place] [address] Phone: tel: Referral ID Status Reason Start Date Expiration Date Visits Re quested Visits Authorized [id number] Closed 06/25/2025 08/26/2025 1 1 [facility] Summary Purpose Family History No Family History Records FoundNo Family History Records FoundNo Family History Records FoundNo Family History Records FoundNo Family History Records Found Advance Directives No Advanced Directives Records FoundNo Advanced Directives Records FoundNo Advanced Directives Records FoundNo Advanced Directives Records FoundNo Advanced Directives Records Found Chief Complaint and Reason for Visit Chief Complaint SORE THROAT, SORE TH ROAT,HEADACHE, COUGH SCREENING Reason for Visit Sinusitis, acute max illary Chief Complaint EORDER Chief Complaint Encounter for genera l adult medical examination wi Additional Source Comments INFORMATION SOURCE (unrecogn ized section and content) DATE CREATED AUTHOR 10/23/2022 [facility] DATE CREATED AUTHOR AUTHOR'S ORGANIZ ATION 06/03/2023 [facility] ([place]) DATE CREATED AUTHOR AUTHOR'S ORGANIZ ATION 09/24/2024 [facility] DATE CREATED AUTHOR AUTHOR'S ORGANIZ ATION 12/12/2024 [facility] DATE CREATED AUTHOR AUTHOR'S ORGANIZ ATION 09/25/[address] [facility] Goals (unrecognized section and content) Goals may be documented in a n alternate sectionGoals may be documented in an alternate sectionGoals may be documented in an alternate section No data available for this sectionGoals may be documented in an alternate sectionGoals may be documented in an alternate section Care Teams (unrecognized sec tion and content) Team Status: Active Member Role Status Dates Dr. Florence Virgen MD Primary Care Provider Active Team Status: Inactive Member Role Status Dates Dr. Florence Virgen MD Primary Care Provider Active Dr. Sully Barrios DO Attending Provider Active Team Status: Inactive Member Role Status Dates Dr. Florence Virgen MD Primary Care Provider Active Shaunna Kathleen COMMUNICATIONS MAINTAINER, COMMUNICATIONS MAINTAINER-C Attending Provider, Referring Pro vider Active Team Status: Inactive Member Role Status Dates Dr. Florence Virgen MD Primary Care Provider, Attendin g Provider Active Team Status: Inactive Member Role Status Dates Dr. Florence Virgen MD Primary Care Prov ider, Attending Provider, Referring Provider Active Licensed Reactor Operator Relationship Specialty Start Date End Date Kaye Terry MD [address] [place], [place] [id number] PCP - General Internal Medicine 06/20/25 Source Comments (unrecognize d section and content) In the event this informatio n is protected by the Federal Confidentiality of Alcohol and Drug Abuse Patient Records regulations: The Federal rules restrict any use of the information to criminally investigate or prosecute any alcohol or drug abuse patient.[facility] Reason for Visit (unrecogniz ed section and content) Reason Onset Date Comments Yearly Exam Immunizations 09/16/2024 Flu vaccination FOR RECORDS PERTAINING TO PATIENTS WHO ARE OR HAVE BEEN ENROLLED IN A CHEMICAL DEPENDENCY/SUBSTANCEABUSE PROGRAM, SOME INFORMATION MAY BE OMITTED. This clinical summary was aggregated from multiple sources. Caution should be exercised in using it in the provision of clinical care. This summary normalizes information from multiple sources, and as a consequence, information in this document may materially change the coding, format and clinical context of patient data. In addition, data may be omitted in some cases. CLINICAL DECISIONS SHOULD BE BASED ON THE PRIMARY CLINICAL RECORDS. [employer] provides no warranty or guarantee of the accuracy or completeness of [phone] in [phone] [id number]
== END | disposition home or self-care (01) ==
DX: Z12.31 Encounter for screening mammogram for malignant neoplasm of breast (principal)
CPT/HCPCS: 77063; 77067